=== PATIENT | female | born 1995 | race Caucasian/White ===

== ENCOUNTER 2019-05-10 11:46 | Emergency (ER) | payer MEDICAID ==
[2019-05-10 12:02] VITALS: O2SAT 100
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
[2019-05-10 13:11] VITALS: BP 139/108; PULSE 85
== END 2019-05-10 13:16 | disposition home or self-care (01) ==
LOC: ED 11:46
DX: S00.93XA Contusion of unspecified part of head, initial encounter (principal); S00.81XA Abrasion of other part of head, initial encounter; S00.01XA Abrasion of scalp, initial encounter; Y04.0XXA Assault by unarmed brawl or fight, initial encounter
CPT/HCPCS: 70450; 70486; 99283

== ENCOUNTER 2021-09-22 03:50 | Emergency (ER) | payer SELFPAY ==
[2021-09-22] MEDS ORDERED: CLONIDINE 0.1 MG TABLET PO ONE (04:06)
[2021-09-22] MEDS ORDERED: CLONIDINE 0.1 MG TABLET ONE (04:09)
--- NOTE | 2021-09-22 04:14 | ERPHSYRPT ---
- History of Present Illness Source: patient Exam Limitations: no limitations Patient Subjective Stated Complaint: Pt states "I have had a headache for the last day. I took my blood pressure tonight and it was 175/122 at home." Triage Nursing Assessment: Pt presents to ED with c/o headache and high blood pressure. Pt has had a headache since yesterday. Pt's blood pressure was 175/122 at home. Pt takes amlodipine that was prescribed by Dr. Valiente. Pt is unknown of doseage of medciation. Pt has been on the medication since last December. Pt denies shortness of breath or chest pain. Pt rates headache 9/. Physician History: 26 yo wf w cc of elevated BP today along w a frontal MAYA. Pt states that the pain is a 9 and an ache. She denies N/V/fever/trauma/focal weakness/chest pain/dyspnea/. Pt takes an unknown dose of Norvasc daily. Nothing makes the pain better or worse, but she gets a MAYA whenever her BP is elevated. Timing/Duration: today Severity: severe Modifying Factors: Improves With: other (blood pressure) Associated Symptoms: headaches, No nausea, No vomiting, No abdominal pain, No shortness of breath, No heartburn, No diaphoresis, No cough, No chills, No chest pain, No fever, No loss of appetite, No malaise, No rash, No syncope, No seizure, No weakness Allergies/Adverse Reactions: amoxicillin [Amoxicillin] Allergy (Unknown, Verified 09/22/21 04:36) Itching cefdinir Allergy (Verified 09/22/21 04:36) Hx Tetanus, Diphtheria Vaccination/Date Given: No Hx Influenza Vaccination/Date Given: No Hx Pneumococcal Vaccination/Date Given: No Immunizations Up to Date: Yes Travel Risk - International Travel Have you traveled outside of the country in past 3 weeks: No - Coronavirus Screening Are you exhibiting any of the following symptoms?: No Close contact with a COVID-19 positive Pt in past 14-21 Days: No - Vaccine Status Have you recieved a Covid-19 vaccination: No - Review of Systems Constitutional: No Symptoms Eyes: No Symptoms Ears, Nose, & Throat: No Symptoms Respiratory: No Symptoms Cardiac: No Symptoms Abdominal/Gastrointestinal: No Symptoms Genitourinary Symptoms: No Symptoms Musculoskeletal: No Symptoms Skin: No Symptoms Neurological: No Symptoms, Headache Psychological: No Symptoms Endocrine: No Symptoms Hematologic/Lymphatic: No Symptoms Immunological/Allergic: No Symptoms - Past Medical History Pertinent Past Medical History: Yes Neurological History: No Pertinent History ENT History: No Pertinent History Cardiac History: Hypertension Respiratory History: No Pertinent History Endocrine Medical History: No Pertinent History Musculoskeletal History: No Pertinent History GI Medical History: No Pertinent History History: No Pertinent History Psycho-Social History: No Pertinent History Female Reproductive Disorders: No Pertinent History Other Medical History: broken arm at age 4 - Past Surgical History Past Surgical History: Yes Neuro Surgical History: No Pertinent History Cardiac: No Pertinent History Respiratory: No Pertinent History Gastrointestinal: No Pertinent History Genitourinary: No Pertinent History Musculoskeletal: Other Female Surgical History: No Pertinent History Other Surgical History: L arm surgery, kidney stone removal - Social History Smoking Status: Never smoker Exposure to second hand smoke: No Drug Use: none Patient Lives Alone: No Significant Family History: no pertinent family hx - Female History Hx Last Menstrual Period: 2 weeks ago Hx Now: No - Nursing Vital Signs Nursing Vital Signs: Initial Vital Signs Temperature 97.8 F 09/22/21 03:51 Pulse Rate 80 09/22/21 03:51 Respiratory Rate 16 09/22/21 03:51 Blood Pressure 190/115 09/22/21 03:51 O2 Sat by Pulse Oximetry 100 09/22/21 03:51 Pain Scale Pain Intensity 4 Hypertensive - Physical Exam General Appearance: no apparent distress Eye Exam: PERRL/EOMI, eyes nml inspection Ears, Nose, Throat Exam: normal ENT inspection, TMs normal, pharynx normal, moist mucous membranes Neck Exam: normal inspection, non-tender, supple, full range of motion, No meningismus, No mass, No Brudzinski, No Kernig's Respiratory Exam: normal breath sounds, lungs clear, airway intact Cardiovascular Exam: regular rate/rhythm, normal heart sounds, normal peripheral pulses, capillary refill <2 sec, No murmur Gastrointestinal/Abdomen Exam: soft, normal bowel sounds, No tenderness Back Exam: normal inspection, normal range of motion, No CVA tenderness, No vertebral tenderness Extremity Exam: normal inspection, normal range of motion Neurologic Exam: alert, oriented x 3, cooperative, decorative engraver II-XII nml as tested, normal mood/affect, nml cerebellar function, nml station & gait, sensation nml, No motor deficits, No sensory deficit Skin Exam: normal color, warm, dry Lymphatic Exam: No adenopathy SpO2 Interpretation: normal SpO2: 100 O2 Delivery: Room Air - CT Exams Head CT Interpretation: Tele-radiologist Report (NAD) Ordered Tests: Medication Summary Discontinued Medications Generic Name Dose Route Start Last Admin Trade Name Shirin PRN Reason Stop Dose Admin Clonidine 0.2 mg 09/22/21 04:06 09/22/21 04:10 Clonidine Hcl 0.1 Mg Tablet PO 09/22/21 04:07 0.2 mg STAT ONE Administration Clonidine Confirm 09/22/21 04:09 Clonidine Hcl 0.1 Mg Tablet Administered 09/22/21 04:10 Dose 0.2 mg .ROUTE .STK-MED ONE - Progress Progress: improved Progress Note: 09/22/21 05:34 BP decreased w 0.2po Clonidine Cephalgia greatly improved w decrease in BP Counseled pt/family regarding: diagnosis, need for follow-up, rad results - Departure Departure Disposition: Home Clinical Impression: Hypertensive urgency, Headache Condition: Stable Critical Care Time: No Referrals: VICTOR MANUEL CORREA REPRODUCTION SPECIALIST [ALLIED HEALTH PROFESSION STAFF] - Follow up/PCP as directed Instructions: High Blood Pressure Emergencies, Malignant Hypertension (DC) Additional Instructions: Follow up with your family MD on Friday Continue current blood pressure meds Return to ER as needed
[2021-09-22 05:49] VITALS: BP 133/88; PULSE 74
--- NOTE | 2021-09-22 07:44 | XRAY ---
Indication: Frontal headache. High blood pressure. Multiple contiguous axial images obtained through the head without contrast. Comparison: May 10, 2019. Normal appearing brain parenchyma, ventricles, and bony calvarium. Mild mucosal thickening inferior right maxillary sinus. Remaining visualized paranasal sinuses and mastoid air cells are clear. Impression: Right maxillary sinus disease. Otherwise continued normal CT head without contrast exam. Comment: Preliminary interpretation made by [facility]. No critical discrepancy.
[2021-09-23 07:17] VITALS: O2SAT 100
== END 2021-09-22 05:49 | disposition home or self-care (01) ==
LOC: ED 03:50
DX: I16.0 Hypertensive urgency (principal); I10 Essential (primary) hypertension; R51.9 Headache, unspecified
CPT/HCPCS: 70450; 99284; A9270-GY

== ENCOUNTER 2021-09-29 19:30 | Emergency (ER) | payer SELFPAY ==
[2021-09-29] MEDS ORDERED: CLONIDINE 0.1 MG TABLET PO ONE ×3 (20:01→21:29)
[2021-09-29] MEDS ORDERED: CLONIDINE 0.1 MG TABLET ONE ×3 (20:02→21:30)
--- NOTE | 2021-09-29 20:27 | ERPHSYRPT ---
- History of Present Illness Time Seen by Provider: 09/29/21 19:48 Source: patient Exam Limitations: no limitations Patient Subjective Stated Complaint: pt states she was not feeling well today and checked her bp today. reading was 178/117 Triage Nursing Assessment: pt alert and oriented, answers questions approp. pt ambulatory with steady gait noted. respirations nonlabored with lungs cta. pupils equal and reactive. bilat upper and lower ext strength equal and wnl. Physician History: 26 years old female with history of hypertension poorly controlled, taking Norvasc since last year and was started on beta-jennie yesterday which she has not picked up yet presented to the ER with chief complaint of elevated blood pressure 178 systolic prior to arrival. Patient reports she has not been feeling right, denies any headache, blurry vision, numbness tingling weakness. No chest pain palpitations or shortness of breath. When asked what exactly she means by not feeling well she could not explain it. She said that she checked her blood pressure which was elevated and decided to return to ER as she was told that the previous ER visit. Timing/Duration: today, gradual onset, worse Severity: moderate Modifying Factors: Improves With: nothing Associated Symptoms: malaise, No shortness of breath, No heartburn, No cough, No chills, No chest pain, No headaches, No loss of appetite, No seizure, No weakness Allergies/Adverse Reactions: amoxicillin [Amoxicillin] Allergy (Unknown, Verified 09/29/21 19:51) Itching cefdinir Allergy (Verified 09/29/21 19:51) Home Medications: Amlodipine Besylate [Norvasc] 0 mg PO HS 09/29/21 [History] Hx Tetanus, Diphtheria Vaccination/Date Given: No Hx Influenza Vaccination/Date Given: No Hx Pneumococcal Vaccination/Date Given: No Immunizations Up to Date: No Travel Risk - International Travel Have you traveled outside of the country in past 3 weeks: No - Coronavirus Screening Are you exhibiting any of the following symptoms?: No Close contact with a COVID-19 positive Pt in past 14-21 Days: No - Vaccine Status Have you recieved a Covid-19 vaccination: No - Review of Systems Constitutional: No Symptoms Eyes: No Symptoms Ears, Nose, & Throat: No Symptoms Respiratory: No Symptoms Cardiac: No Symptoms Abdominal/Gastrointestinal: No Symptoms Genitourinary Symptoms: No Symptoms Musculoskeletal: No Symptoms Skin: No Symptoms Neurological: No Symptoms Psychological: Anxiety Endocrine: No Symptoms Hematologic/Lymphatic: No Symptoms Immunological/Allergic: No Symptoms - Past Medical History Pertinent Past Medical History: Yes Neurological History: No Pertinent History ENT History: No Pertinent History Cardiac History: Hypertension Respiratory History: No Pertinent History Endocrine Medical History: No Pertinent History Musculoskeletal History: No Pertinent History GI Medical History: No Pertinent History History: No Pertinent History Psycho-Social History: No Pertinent History Female Reproductive Disorders: No Pertinent History Other Medical History: broken arm at age 4 - Past Surgical History Past Surgical History: Yes Neuro Surgical History: No Pertinent History Cardiac: No Pertinent History Respiratory: No Pertinent History Gastrointestinal: No Pertinent History Genitourinary: No Pertinent History Musculoskeletal: Other Female Surgical History: No Pertinent History Other Surgical History: L arm surgery, kidney stone removal - Social History Smoking Status: Never smoker Exposure to second hand smoke: No Drug Use: none Patient Lives Alone: No Significant Family History: no pertinent family hx - Female History Hx Last Menstrual Period: few weeks Hx Now: No - Nursing Vital Signs Nursing Vital Signs: Initial Vital Signs Temperature 97.8 F 09/29/21 19:36 Pulse Rate 93 H 09/29/21 19:36 Respiratory Rate 18 09/29/21 19:36 Blood Pressure 176/106 09/29/21 19:36 O2 Sat by Pulse Oximetry 96 09/29/21 19:36 Pain Scale Pain Intensity 0 - Physical Exam General Appearance: no apparent distress, alert, anxiety Eye Exam: PERRL/EOMI, eyes nml inspection Ears, Nose, Throat Exam: normal ENT inspection, TMs normal, pharynx normal, moist mucous membranes Neck Exam: normal inspection, non-tender, supple, full range of motion Respiratory Exam: normal breath sounds, lungs clear Cardiovascular Exam: regular rate/rhythm, normal heart sounds Gastrointestinal/Abdomen Exam: soft, normal bowel sounds, No tenderness Back Exam: normal inspection, normal range of motion, No vertebral tenderness Extremity Exam: normal inspection, normal range of motion Neurologic Exam: alert, oriented x 3, cooperative, restorative rehab aide II-XII nml as tested, nml cerebellar function, nml station & gait, sensation nml, No normal mood/affect (Anxious), No motor deficits Skin Exam: normal color SpO2 Interpretation: normal SpO2: 99 O2 Delivery: Room Air Ordered Tests: Active Orders 24 hr Category Date Time Status EKG-ER Only STAT Care 09/29/21 20:01 Active Medication Summary Discontinued Medications Generic Name Dose Route Start Last Admin Trade Name Shirin ESCOBAR Reason Stop Dose Admin Clonidine 0.1 mg 09/29/21 20:01 09/29/21 20:03 Clonidine Hcl 0.1 Mg Tablet PO 09/29/21 20:02 0.1 mg STAT ONE Administration Clonidine Confirm 09/29/21 20:02 Clonidine Hcl 0.1 Mg Tablet Administered 09/29/21 20:03 Dose 0.1 mg .ROUTE .STK-MED ONE Clonidine 0.1 mg 09/29/21 21:27 09/29/21 21:31 Clonidine Hcl 0.1 Mg Tablet PO 09/29/21 21:28 0.1 mg STAT ONE Administration Clonidine Confirm 09/29/21 21:28 Clonidine Hcl 0.1 Mg Tablet Administered 09/29/21 21:29 Dose 0.1 mg .ROUTE .STK-MED ONE Clonidine 0.1 mg 09/29/21 21:29 09/29/21 21:31 Clonidine Hcl 0.1 Mg Tablet PO 09/29/21 21:30 0.1 mg STAT ONE Administration Clonidine Confirm 09/29/21 21:30 Clonidine Hcl 0.1 Mg Tablet Administered 09/29/21 21:31 Dose 0.1 mg .ROUTE .STK-MED ONE - Progress Progress: improved Progress Note: 26 years old is evaluated for uncontrolled hypertension. She is given clonidine and feeling better on reevaluation and blood pressure also improved. Patient denies any chest pain palpitations or shortness of breath. EKG showed sinus rhythm without any acute ischemic changes. She has recently work-up done which was negative. I do not think she needs any other work-up and is stable for discharge, recommended medication compliance, exercise, weight loss and outpatient follow-up. 09/29/21 22:17 Counseled pt/family regarding: diagnosis, need for follow-up - Departure Departure Disposition: Home Clinical Impression: Uncontrolled hypertension Condition: Stable Critical Care Time: No Referrals: SANIA JACKSON MD [Primary Care Provider] - Follow up/PCP as directed (In 2 days for reevaluation) Instructions: Malignant Hypertension (DC) Additional Instructions: take your medications regularly, keep a log and follow-up with primary care for reevaluation. Return to ER if having intractable chest pain, palpitation/shortness of breath/headache, numbness tingling weakness, blurry vision etc.
[2021-09-29 22:09] VITALS: BP 129/78; PULSE 85
[2021-09-29 22:19] VITALS: O2SAT 99
== END 2021-09-29 22:25 | disposition home or self-care (01) ==
LOC: ED 19:30
DX: I10 Essential (primary) hypertension (principal); Z79.899 Other long term (current) drug therapy
CPT/HCPCS: 93005; 99284; A9270-GY

== ENCOUNTER 2023-08-06 22:13 | Emergency (ER) | payer OTHER ==
--- NOTE | 2023-08-06 23:04 | ERPHSYRPT ---
- History of Present Illness Time Seen by Provider: 08/06/23 23:00 Source: patient Exam Limitations: no limitations Physician History: 28-year-old female presents to the emergency department for evaluation of generalized bodyaches neck pain subjective fever nausea and vomiting. Patient has no significant past medical history. No obvious sick contacts. Patient symptoms are mild to moderate in intensity no specific worsening or improving factors. Patient voices no other complaints or concerns at this time. Disclaimer Timing/Duration: today Severity: moderate Modifying Factors: Improves With: nothing Associated Symptoms: nausea, vomiting, abdominal pain Allergies/Adverse Reactions: amoxicillin [Amoxicillin] Allergy (Unknown, Verified 08/06/23 22:44) Itching cefdinir Allergy (Verified 08/06/23 22:44) Home Medications: Amlodipine Besylate [Norvasc] 0 mg PO HS 09/29/21 [History] Hx Tetanus, Diphtheria Vaccination/Date Given: No Hx Influenza Vaccination/Date Given: No Hx Pneumococcal Vaccination/Date Given: No Travel Risk - Vaccine Status Have you recieved a Covid-19 vaccination: No - Review of Systems Constitutional: No Symptoms, No Fever, No Chills Eyes: No Symptoms Ears, Nose, & Throat: No Symptoms Respiratory: No Symptoms, No Cough, No Dyspnea Cardiac: No Symptoms, No Chest Pain, No Edema, No Syncope Abdominal/Gastrointestinal: No Symptoms, No Abdominal Pain, No Nausea, No Vomiti ng, No Diarrhea Genitourinary Symptoms: No Symptoms, No Dysuria Musculoskeletal: No Symptoms, No Back Pain, No Neck Pain Skin: No Symptoms, No Rash Neurological: No Symptoms, No Dizziness, No Focal Weakness, No Sensory Changes Psychological: No Symptoms Endocrine: No Symptoms Hematologic/Lymphatic: No Symptoms Immunological/Allergic: No Symptoms All Other Systems: Reviewed and Negative - Past Medical History Pertinent Past Medical History: Yes Neurological History: No Pertinent History ENT History: No Pertinent History Cardiac History: Hypertension Respiratory History: No Pertinent History Endocrine Medical History: No Pertinent History Musculoskeletal History: No Pertinent History GI Medical History: No Pertinent History History: No Pertinent History Psycho-Social History: No Pertinent History Female Reproductive Disorders: No Pertinent History Other Medical History: broken arm at age 4 - Past Surgical History Past Surgical History: Yes Neuro Surgical History: No Pertinent History Cardiac: No Pertinent History Respiratory: No Pertinent History Gastrointestinal: No Pertinent History Genitourinary: No Pertinent History Musculoskeletal: Other Female Surgical History: No Pertinent History Other Surgical History: L arm surgery, kidney stone removal - Social History Smoking Status: Never smoker Exposure to second hand smoke: No Drug Use: none Patient Lives Alone: No Significant Family History: no pertinent family hx - Nursing Vital Signs Nursing Vital Signs: Initial Vital Signs Temperature 98.6 F 08/06/23 22:54 Pulse Rate 105 H 08/06/23 22:54 Respiratory Rate 14 08/06/23 22:54 Blood Pressure 150/105 08/06/23 22:54 O2 Sat by Pulse Oximetry 99 08/06/23 22:54 Pain Scale Pain Intensity 5 - Physical Exam General Appearance: no apparent distress, alert Eye Exam: PERRL/EOMI, eyes nml inspection Ears, Nose, Throat Exam: normal ENT inspection, TMs normal, pharynx normal, moist mucous membranes Neck Exam: normal inspection, non-tender, supple, full range of motion Respiratory Exam: normal breath sounds, lungs clear, airway intact, No respiratory distress Cardiovascular Exam: regular rate/rhythm, normal heart sounds, normal peripheral pulses Gastrointestinal/Abdomen Exam: soft, normal bowel sounds, No tenderness, No mass Back Exam: normal inspection, normal range of motion, No CVA tenderness, No vertebral tenderness Extremity Exam: normal inspection, normal range of motion, pelvis stable Neurologic Exam: alert, oriented x 3, cooperative, normal mood/affect, nml cerebellar function, nml station & gait, sensation nml, No motor deficits Skin Exam: normal color, warm, dry, No rash Lymphatic Exam: No adenopathy SpO2 Interpretation: normal SpO2: 98 O2 Delivery: Room Air - Course Nursing assessment & vital signs reviewed: Yes Ordered Tests: Active Orders 24 hr Category Date Time Status IV Insertion STAT Care 08/06/23 22:59 Active CBC W DIFF Stat Lab 08/06/23 23:16 Completed CMP Stat Lab 08/06/23 23:16 Completed CULTURE,URINE Stat Lab 08/06/23 23:10 Received HCG QUALITATIVE, URINE Stat Lab 08/06/23 23:10 Completed LIPASE Stat Lab 08/06/23 23:16 Completed TROPONIN Q4H Lab 08/06/23 23:16 Completed TROPONIN Q4H Lab 08/07/23 03:00 Ordered TROPONIN Q4H Lab 08/07/23 07:00 Ordered UA W/RFX UR CULTURE Stat Lab 08/06/23 23:10 Completed Medication Summary Discontinued Medications Generic Name Dose Route Start Last Admin Trade Name Shirin PRN Reason Stop Dose Admin Sodium Chloride 1,000 mls @ 999 mls/hr 08/06/23 22:59 08/06/23 23:29 Sodium Chloride 0.9% 1000 Ml IV 08/06/23 23:59 999 mls/hr .Q1H1M STA Administration Sodium Chloride Confirm 08/06/23 23:28 Sodium Chloride 0.9% 1000 Ml Administered 08/06/23 23:29 Dose 1,000 mls @ ud .ROUTE .STK-MED ONE Ondansetron HCl 4 mg 08/06/23 23:04 08/06/23 23:29 Ondansetron Hcl 4 Mg/2 Ml Vial IV 08/06/23 23:05 4 mg STAT ONE Administration Ondansetron HCl Confirm 08/06/23 23:28 Ondansetron Hcl 4 Mg/2 Ml Vial Administered 08/06/23 23:29 Dose 4 mg .ROUTE .STK-MED ONE Lab/Rad Data: Laboratory Result Diagrams 08/06/23 23:16 08/06/23 23:16 Laboratory Results 08/06/23 08/06/23 08/06/23 Range/Units 23:16 23:16 23:16 WBC 8.6 (4.0-10.5) x10^3/uL RBC 4.49 (4.1-5.4) x10^6/uL Hgb 11.4 L (12.0-16.0) g/dL Hct 37.4 (35-47) % MCV 83.3 (78-100) fL MCH 25.4 L (26-32) pg MCHC 30.5 L (32-36) g/dL RDW 13.4 (11.5-14.0) % Plt Count 249 (150-450) x10^3/uL MPV 10.4 (7.5-11.0) fL Gran % 88.6 H (36.0-66.0) % Immature Gran % (Auto) 0.2 (0.00-0.4) % Nucleat RBC Rel Count 0.0 (0.00-0.1) % Eos # (Auto) 0.07 (0-0.5) x10^3/uL Immature Gran # (Auto) 0.02 (0.00-0.03) x10^3u/L Absolute Lymphs (auto) 0.52 L (1.0-4.6) x10^3/uL Absolute Monos (auto) 0.37 (0.0-1.3) x10^3/uL Absolute Nucleated RBC 0.00 (0.00-0.01) x10^3u/L Lymphocytes % 6.0 L (24.0-44.0) % Monocytes % 4.3 (0.0-12.0) % Eosinophils % 0.8 (0.00-5.0) % Basophils % 0.1 (0.0-0.4) % Absolute Granulocytes 7.63 H (1.4-6.9) x10^3/uL Basophils # 0.01 (0-0.4) x10^3/uL Sodium 139 (135-145) mmol/L Potassium 4.2 (3.5-5.1) mmol/L Chloride 106 (98-107) mmol/L Carbon Dioxide 23 (22-30) mmol/L Anion Gap 14.4 (5-15) MEQ/L BUN 18 H (7-17) mg/dL Creatinine 0.93 (0.52-1.04) mg/dL Estimated GFR 84.8 ML/MIN Glucose 107 H (74-106) mg/dL Calcium 9.0 (8.4-10.2) mg/dL Total Bilirubin 0.70 (0.2-1.3) mg/dL AST 43 H (14-36) U/L ALT 34 (0-35) U/L Alkaline Phosphatase 157 H (38-126) U/L Troponin I < 0.012 (0.000-0.034) ng/mL Serum Total Protein 7.6 (6.3-8.2) g/dL Albumin 4.4 (3.5-5.0) g/dL Lipase 65 (23-300) U/L Urine Color (Yellow) Urine Appearance (Clear) Urine pH (4.6-8.0) Ur Specific Buckner (1.005-1.030) Urine Protein (Negative) Urine Glucose (UA) (Negative) mg/dL Urine Ketones (Negative) Urine Blood (Negative) Urine Nitrite (Negative) Urine Bilirubin (Negative) Urine Urobilinogen (0.2) mg/dL Ur Leukocyte Esterase (Negative) U Hyaline Cast (Auto) (0-2) /LPF Urine Microscopic RBC (0-5) /HPF Urine Microscopic WBC (0-5) /HPF Ur Epithelial Cells (None Seen) /HPF Urine Bacteria (None Seen) /HPF Urine Culture Reflexed (NO) Urine HCG, Qual (NEGATIVE) Influenza Type A Ag (NEGATIVE) Influenza Type B Ag (NEGATIVE) RSV (PCR) (NEGATIVE) SARS-CoV-2 (PCR) (NEGATIVE) Slides for Path Review YES 08/06/23 08/06/23 08/06/23 Range/Units 23:16 23:10 23:10 WBC (4.0-10.5) x10^3/uL RBC (4.1-5.4) x10^6/uL Hgb (12.0-16.0) g/dL Hct (35-47) % MCV (78-100) fL MCH (26-32) pg MCHC (32-36) g/dL RDW (11.5-14.0) % Plt Count (150-450) x10^3/uL MPV (7.5-11.0) fL Gran % (36.0-66.0) % Immature Gran % (Auto) (0.00-0.4) % Nucleat RBC Rel Count (0.00-0.1) % Eos # (Auto) (0-0.5) x10^3/uL Immature Gran # (Auto) (0.00-0.03) x10^3u/L Absolute Lymphs (auto) (1.0-4.6) x10^3/uL Absolute Monos (auto) (0.0-1.3) x10^3/uL Absolute Nucleated RBC (0.00-0.01) x10^3u/L Lymphocytes % (24.0-44.0) % Monocytes % (0.0-12.0) % Eosinophils % (0.00-5.0) % Basophils % (0.0-0.4) % Absolute Granulocytes (1.4-6.9) x10^3/uL Basophils # (0-0.4) x10^3/uL Sodium (135-145) mmol/L Potassium (3.5-5.1) mmol/L Chloride (98-107) mmol/L Carbon Dioxide (22-30) mmol/L Anion Gap (5-15) MEQ/L BUN (7-17) mg/dL Creatinine (0.52-1.04) mg/dL Estimated GFR ML/MIN Glucose (74-106) mg/dL Calcium (8.4-10.2) mg/dL Total Bilirubin (0.2-1.3) mg/dL AST (14-36) U/L ALT (0-35) U/L Alkaline Phosphatase (38-126) U/L Troponin I (0.000-0.034) ng/mL Serum Total Protein (6.3-8.2) g/dL Albumin (3.5-5.0) g/dL Lipase (23-300) U/L Urine Color Yellow (Yellow) Urine Appearance Cloudy A (Clear) Urine pH 7.0 (4.6-8.0) Ur Specific Buckner 1.025 (1.005-1.030) Urine Protein Trace A (Negative) Urine Glucose (UA) Negative (Negative) mg/dL Urine Ketones Negative (Negative) Urine Blood Negative (Negative) Urine Nitrite Negative (Negative) Urine Bilirubin Negative (Negative) Urine Urobilinogen 1.0 A (0.2) mg/dL Ur Leukocyte Esterase Moderate A (Negative) U Hyaline Cast (Auto) NONE SEEN (0-2) /LPF Urine Microscopic RBC 3-5 (0-5) /HPF Urine Microscopic WBC 21-50 A (0-5) /HPF Ur Epithelial Cells Moderate A (None Seen) /HPF Urine Bacteria Few A (None Seen) /HPF Urine Culture Reflexed YES (NO) Urine HCG, Qual NEGATIVE (NEGATIVE) Influenza Type A Ag NEGATIVE (NEGATIVE) Influenza Type B Ag NEGATIVE (NEGATIVE) RSV (PCR) NEGATIVE (NEGATIVE) SARS-CoV-2 (PCR) NEGATIVE (NEGATIVE) Slides for Path Review - Progress Progress: improved Progress Note: 28-year-old female presents to our ED for evaluation of nausea vomiting and some diarrhea. Patient has generalized bodyaches. Some myalgias no photophobia no headache. Some vague neck pain. Physical exam otherwise nonremarkable. Laboratory workup reveals dehydration. UA reveals urinary tract infection. IV fluids infused. Patient received an oral dose of Macrobid. A prescription for Macrobid forwarded to patient's pharmacy. Zofran administered for nausea. Patient reassessed. She feels much better. Nausea resolved. Patient states she is ready for discharge. Will discharge home. Patient agrees to follow-up with her primary care doctor within 48 hours for reevaluation. Portions of this note were created with voice recognition technology. There may be grammatical, spelling, punctuation or sound alike errors Complexity of problem addressed is moderate acute complicated No critical care time Complex of data reviewed and analyzed is moderate. Test ordered test reviewed. Results analyzed and correlated clinically with history and physical exam. Risk complication and or risk of morbidity/mortality of patient management is moderate. A prescription for Macrobid forwarded to patient's pharmacy. Vital stable. Time spent to discharge patient is approximately 20 minutes. an of care established for shared decision making. No social determinants of health present impede follow-up. Portions of this note were created with voice recognition technology. There may be grammatical, spelling, punctuation or sound alike errors 08/07/23 00:17 08/07/23 00:18 Counseled pt/family regarding: lab results, diagnosis, need for follow-up - Departure Departure Disposition: Home Clinical Impression: UTI (urinary tract infection), Dehydration, Nausea and vomiting Condition: Stable Critical Care Time: No Referrals: SANIA JACKSON MD [Primary Care Provider] - Follow up/PCP as directed Additional Instructions: Discharge/Care Plan LETHAKIRT WHITE was seen on 08/07/23 in the Emergency Room. The patient was counseled regarding Diagnosis,Lab results, Imaging studies, need for follow up and when to return to the Emergency Room. Prescriptions given: Discharge Note I have spoken with the patient and/or caregivers. I have explained the patient's condition, diagnosis and treatment plan based on the information available to me at this time. I have answered the patient's and/or caregiver's questions and addressed any concerns. The patient and/or caregivers have as good understanding of the patient's diagnosis, condition and treatment plan as can be expected at this point. The vital signs have been stable. The patient's condition is stable and appropriate for discharge from the emergency department. The patient will pursue further outpatient evaluation with the primary care physician or other designated or consulting physician as outlined in the d ischarge instructions. The patient and/or caregivers are agreeable to this plan of care and follow-up instructions have been explained in detail. The patient and/or caregivers have received these instruction. The patient/and or caregivers are aware that any significant change in condition or worsening of symptoms should prompt an immediate return to this or the closest emergency department or call 911. Prescriptions: Nitrofurantoin Macro 100 mg [Macrobid 100MG Capsule] 100 mg PO BID 7 Days #14 cap
[2023-08-06 23:18] LABS: Absolute Neutrophil Ct (ANC) 7.63 x10^3/uL (1.4-6.9); BASOPHIL % 0.1 % (0.0-0.4); Basophil (Absolute #) 0.01 x10^3/uL (0-0.4); Eosinophil % 0.8 % (0.00-5.0); Eosinophil (Absolute #) 0.07 x10^3/uL (0-0.5); Hematocrit 37.4 % (35-47); Hemoglobin 11.4 g/dL (12.0-16.0); IMMATURE GRAN # 0.02 x10^3u/L (0.00-0.03); IMMATURE GRAN % 0.2 % (0.00-0.4); Lymphocyte (Absolute #) 0.52 x10^3/uL (1.0-4.6); Mean Cell Volume 83.3 fL (78-100); Mean Corpuscular Hemoglobin 25.4 pg (26-32); Mean Corpuscular Hgb Concent. 30.5 g/dL (32-36); Mean Platelet Volume 10.4 fL (7.5-11.0); Monocyte (Absolute #) 0.37 x10^3/uL (0.0-1.3); Monocytes % 4.3 % (0.0-12.0); Neutrophil % 88.6 % (36.0-66.0); Platelet Count 249 x10^3/uL (150-450); Red Blood Count 4.49 x10^6/uL (4.1-5.4); Red Cell Distribution Width 13.4 % (11.5-14.0); White Blood Count 8.6 x10^3/uL (4.0-10.5)
[2023-08-06] MEDS ORDERED: Sodium Chloride 0.9% 1000 ML 1,000 ML ONE (23:28)
[2023-08-06] MEDS ORDERED: Zofran 4 MG/2 ML VIAL ONE (23:28)
[2023-08-06 23:29] LABS: ALBUMIN 4.4 g/dL (3.5-5.0); ANION GAP 14.4 MEQ/L (5-15); BILIRUBIN,TOTAL 0.7 mg/dL (0.2-1.3); Creatinine 1 0.93 mg/dL (0.52-1.04); EST GLOMERULAR FILTRATION RATE 84.8 ML/MIN; Potassium 4.2 mmol/L (3.5-5.1); Total Protein 7.6 g/dL (6.3-8.2)
[2023-08-06] MEDS: Sodium Chloride 0.9% 1000 ML 1,000 ML IV STA (23:29)
[2023-08-06] MEDS: Zofran 4 MG/2 ML VIAL IV ONE (23:29)
[2023-08-06 23:37] LABS: Appearance Cloudy (Clear); Bacteria Few /HPF (None Seen); Bilirubin Negative (Negative); Blood Negative (Negative); Epithelial Cells Moderate /HPF (None Seen); Glucose, Urine Negative (Negative); HCG URINE TEST NEGATIVE (NEGATIVE); Hyaline Casts NONE SEEN /LPF (0-2); Ketones Negative (Negative); Leukocyte Esterase Moderate (Negative); Nitrite Negative (Negative); Protein,Urine Dip Trace (Negative); Specific Gravity 1.025 (1.005-1.030); WBC 21-50 /HPF (0-5)
[2023-08-06 23:42] VITALS: TEMP 98.6
[2023-08-06 23:47] LABS: ADD URINE CULTURE? YES (NO)
[2023-08-06 23:51] LABS: Slide Review 1 YES
[2023-08-06 23:55] LABS: INFLUENZA A NEGATIVE (NEGATIVE); INFLUENZA B NEGATIVE (NEGATIVE); RESPIRATORY SYNCTIAL VIRUS NEGATIVE (NEGATIVE); SARS-CoV-2 Xpert Express NEGATIVE (NEGATIVE)
[2023-08-07 00:03] VITALS: RESP 20
[2023-08-07] MEDS ORDERED: Macrobid 100MG Capsule ONE (00:12)
[2023-08-07] MEDS: Macrobid 100MG Capsule PO ONE (00:13)
[2023-08-07 00:45] VITALS: BP 161/104; PULSE 96; O2SAT 100
== END 2023-08-07 00:43 | disposition home or self-care (01) ==
LOC: ED 22:13
DX: N39.0 Urinary tract infection, site not specified (principal); E86.0 Dehydration; R11.2 Nausea with vomiting, unspecified; M79.10 Myalgia, unspecified site; M54.2 Cervicalgia; I10 Essential (primary) hypertension; Z79.899 Other long term (current) drug therapy; Z28.310 Unvaccinated for COVID-19
CPT/HCPCS: 0241U; 36000; 36415; 80053; 81001; 81025; 83690; 84484; 85025; 87086; 93041; 94760; 96360; 96374; 99284; J2405; A9270-GY